=== PATIENT | female | born 1965 | race American Indian/Alaskan Native ===

== ENCOUNTER 2019-05-13 18:46 | Emergency (ER) | payer SELFPAY ==
--- NOTE | 2019-05-13 22:22 | Emergency Department Report ---
Chief Complaint: Extremity Injury, Lower Stated Complaint: HEEL PAIN, TINGLING IN TOES Time Seen by Provider: 05/13/19 22:15 - HPI History of Present Illness: 53 y/o female comes in for bilateral feet tingling for over 3 months. Heel aches and toes get numbness. Has not taking anything for pain. Admits to standing on her feet for 10 hours a days - Exam Physical Exam: AxO times 3 NAD Ambulatory without difficulties. MSE screening note: Focused history and physical exam performed. Due to findings the following was ordered: 53 y/o female comes in for bilateral feet tingling for over 3 months. Heel aches and toes get numbness. Has not taking anything for pain. Admits to standing on her feet for 10 hours a days. Recommend Ibuprofen switch tennis shoes every couple of days and Follow up with a PCP. ED Disposition for [facility] [place] Disposition: MED SCREENING EXAM-LEFT Is pt being admited?: No Does the pt Need Aspirin: No Condition: Stable Additional Instructions: Recommend Ibuprofen switch tennis shoes every couple of days and Follow up with a PCP. Referrals: PRIMARY MD VIKTORIA [Primary Care Provider] - 3-5 Days VIRAL ZELAYA MD [Staff Physician] - 3-5 Days
[2019-05-13 22:24] VITALS: BP 158/98
== END 2019-05-13 23:00 | disposition left against medical advice (07) ==
LOC: ED 18:46
DX: R20.2 Paresthesia of skin (principal); R20.0 Anesthesia of skin; M79.673 Pain in unspecified foot
CPT/HCPCS: 99282

== ENCOUNTER 2019-12-18 15:01 | Emergency (ER) | payer SELFPAY ==
[2019-12-18 15:25] VITALS: BP 174/89
[2019-12-18] MEDS ORDERED: traMADol 50 MG TAB PO ONE (20:28)
--- NOTE | 2019-12-18 20:57 | Emergency Department Report ---
ED Lower Extremity HPI - General Chief Complaint: Extremity Injury, Lower Stated Complaint: PRESSURE ON BONE Time Seen by Provider: 12/18/19 20:27 Source: patient Mode of arrival: Ambulatory Limitations: No Limitations - History of Present Illness Initial Comments: Patient 54-year-old -[place] female who presents with left pinky toe pain x3 weeks. Patient denies fall injury or trauma. Pain is described by aching and soreness exacerbated by wearing shoes and weightbearing. There is no open wound drainage or fever. Patient remains ambulatory. There is no numbness or tingling. Patient does not have diabetes. There is been no fever or chills , no rigors or not nausea and vomiting. Symptoms relieved by off loading MD Complaint: foot injury - Related Data Previous Rx's Medication Instructions Recorded Last Taken Type cephALEXin [Keflex] 500 mg PO Q8HR 7 Days #21 cap 12/18/19 Unknown Rx traMADoL [Ultram] 50 mg PO Q6HR PRN #12 tablet 12/18/19 Unknown Rx Allergies Allergy/AdvReac Type Severity Reaction Status Date / Time No Known Allergies Allergy Verified 12/18/19 15:23 ED Review of Systems ROS: Stated complaint: PRESSURE ON BONE Other details as noted in HPI Constitutional: denies: chills, fever Eyes: denies: eye pain, eye discharge, vision change ENT: denies: ear pain, throat pain Respiratory: denies: cough, shortness of breath, wheezing Cardiovascular: denies: chest pain, palpitations Endocrine: no symptoms reported Gastrointestinal: denies: abdominal pain, nausea, vomiting, diarrhea Genitourinary: denies: urgency, dysuria, discharge Musculoskeletal: other (left toe pain ). denies: back pain, joint swelling, arthralgia Skin: denies: rash, lesions Neurological: denies: headache, weakness, paresthesias Psychiatric: denies: anxiety, depression Hematological/Lymphatic: denies: easy bleeding, easy bruising ED Past Medical Hx - Past Medical History Hx Hypertension: Yes - Surgical History Additional Surgical History: c sect - Social History Smoking Status: Never Smoker Substance Use Type: None - Medications Home Medications: Home Medications Medication Instructions Recorded Confirmed Last Taken Type cephALEXin [Keflex] 500 mg PO Q8HR 7 Days #21 cap 12/18/19 Unknown Rx traMADoL [Ultram] 50 mg PO Q6HR PRN #12 tablet 12/18/19 Unknown Rx ED Physical Exam - General Limitations: No Limitations General appearance: alert, in no apparent distress - Head Head exam: Present: atraumatic, normocephalic - Eye Eye exam: Present: normal appearance - ENT ENT exam: Present: mucous membranes moist - Neck Neck exam: Present: normal inspection - Respiratory Respiratory exam: Present: normal lung sounds bilaterally. Absent: respiratory distress - Cardiovascular Cardiovascular Exam: Present: regular rate, normal rhythm. Absent: systolic murmur, diastolic murmur, rubs, gallop - GI/Abdominal GI/Abdominal exam: Present: soft, normal bowel sounds - Rectal Rectal exam: Present: deferred - Extremities Exam Extremities exam: Present: other (left 5th toe pain) - Expanded Lower Extremity Exam Left Foot/Toe exam: Present: full ROM, tenderness, erythema. Absent: swelling, abrasion, laceration, ecchymosis, deformity, crepidus, puncture wound, foreign body, calcaneal tenderness, tenderness at base of 5th metatarsal, nail avulsion, subungual hematoma Neuro vascular tendon exam: Absent: pulse deficit, motor deficit, sensory deficit, tendon deficit Gait: Positive: observed and normal - Back Exam Back exam: Present: normal inspection, full ROM - Neurological Exam Neurological exam: Present: alert, oriented X3, CN II-XII intact, normal gait, reflexes normal. Absent: motor sensory deficit - Psychiatric Psychiatric exam: Present: normal affect, normal mood - Skin Skin exam: Present: warm, dry, intact, normal color, erythema (left small toe as above ). Absent: rash ED Course Vital Signs 12/18/19 15:25 Temperature 97.7 F Pulse Rate 71 Respiratory 18 Rate Blood Pressure 174/89 O2 Sat by Pulse 98 Oximetry ED Lower Extremity MDM - Medical Decision Making This is mild cellulitis. Plan Keflex p.o. Ultram as needed pain follow-up with PCP or podiatry as directed patient verbalizes agreement and understanding with discharge plan. Patient DC'd home in stable condition at this time. Critical care attestation.: If time is entered above; I have spent that time in minutes in the direct care of this critically ill patient, excluding procedure time. ED Disposition Clinical Impression: Cellulitis of toe of left foot Disposition: DC-01 TO HOME OR SELFCARE Is pt being admited?: No Does the pt Need Aspirin: No Condition: Stable Instructions: Cellulitis (ED) Prescriptions: cephALEXin [Keflex] 500 mg PO Q8HR 7 Days #21 cap traMADoL [Ultram] 50 mg PO Q6HR PRN #12 tablet PRN Reason: Pain Referrals: PAYAL VILLALBA MD [Staff Physician] - 3-5 Days BASHIR ARITA MD [Staff Physician] - 3-5 Days Forms: Work/School Release Form(ED) Time of Disposition: 21:04
== END 2019-12-18 21:15 | disposition home or self-care (01) ==
LOC: ED 15:01
DX: L03.032 Cellulitis of left toe (principal); I10 Essential (primary) hypertension; Z79.899 Other long term (current) drug therapy; Z98.890 Other specified postprocedural states
CPT/HCPCS: 99282